=== PATIENT | female | born 1965 | race Hispanic/Latino ===

== ENCOUNTER 2020-09-24 16:16 | Emergency (ER) | payer OTHER ==
[~2020-09-24] VITALS: Ht 152.4 cm; Wt 68.0 kg
[2020-09-24 19:03] VITALS: BP 138/82
[2020-09-24] MEDS ORDERED: ACET1TAB25 PO (20:20)
[2020-09-24 20:23] VITALS: BP 138/82
[2020-09-24] MEDS ORDERED: KETOROLAC 30MG VIAL (30MG/ML) IM ONE (20:30)
== END 2020-09-24 21:00 | disposition home or self-care (01) ==
LOC: EDH 16:16
DX: S92.425A Nondisplaced fracture of distal phalanx of left great toe, initial encounter for closed fracture (principal); E78.5 Hyperlipidemia, unspecified; Z90.710 Acquired absence of both cervix and uterus; X58.XXXA Exposure to other specified factors, initial encounter; Y93.89 Activity, other specified; Y92.89 Other specified places as the place of occurrence of the external cause; Y99.8 Other external cause status
CPT/HCPCS: 73630